=== PATIENT | female | born 1935 | race Caucasian/White ===

== ENCOUNTER → 2016-06-08 | Outpatient (CLI) | payer MEDICARE, OTHER ==
[~2016-06-08] MED LIST: ASPI1TAB69 PO; ASPI81 PO; DOXY100C PO; LEVA500T PO; LISI-363 PO; LISI-515 PO; MULT1TAB84 PO; VITA10002 PO
[2016-06-08 09:27] LABS: AUTOMATED NEUTROPHIL # 3.4 TH/MM3 (1.8-7.7); BASOPHIL % 0.7 % (0.0-2.0); EOSINOPHIL # 0.1 TH/MM3 (0-0.4); EOSINOPHIL % 1.8 % (0.0-4.0); HEMATOCRIT 38.7 % (35.0-46.0); HEMO FLAGS DIFF FINAL; LYMPH % 24.1 % (9.0-44.0); LYMPHOCYTE # 1.3 TH/MM3 (1.0-4.8); MEAN CELL VOLUME 87.4 FL (80.0-100.0); MEAN CORPUSCULAR HEMOGLOBIN 29.7 PG (27.0-34.0); MEAN CORPUSCULAR HGB CONC 33.9 % (32.0-36.0); MONO % 7.1 % (0.0-8.0); NEUT % 66.3 % (16.0-70.0); PLATELET COUNT 210 TH/MM3 (150-450); RED BLOOD COUNT 4.42 MIL/MM3 (4.00-5.30); RED CELL DISTRIBUTION WIDTH 13.3 % (11.6-17.2); WHITE BLOOD COUNT 5.2 TH/MM3 (4.0-11.0)
[2016-06-08 09:52] LABS: ALKALINE PHOSPHATASE 79 U/L (45-117); ALT (GPT) 31 U/L (10-53); ANION GAP 7 MEQ/L (5-15); AST (GOT) 25 U/L (15-37); BLOOD UREA NITROGEN 16 MG/DL (7-18); CHLORIDE 102 MEQ/L (98-107); GLOMERULAR FILTRATION RATE 61 ML/MIN (>89); GLUCOSE,FASTING 107 MG/DL (74-99); POTASSIUM 4.3 MEQ/L (3.5-5.1); SODIUM (NA) 141 MEQ/L (136-145); TOTAL BILIRUBIN ADULT 0.5 MG/DL (0.2-1.0)
== END ==
LOC: PLAB 07:19
PROVIDERS: ATTEND Family Medicine
DX: I10 Essential (primary) hypertension (principal); E11.9 Type 2 diabetes mellitus without complications
CPT/HCPCS: 36415; 80053; 85025

== ENCOUNTER → 2016-12-07 | Outpatient (CLI) | payer MEDICARE, OTHER ==
[~2016-12-07] MED LIST changes: -ASPI81 PO; -DOXY100C PO; -LEVA500T PO; -LISI-363 PO
[2016-12-07 09:27] LABS: AUTOMATED NEUTROPHIL # 2.6 TH/MM3 (1.8-7.7); BASOPHIL % 0.7 % (0.0-2.0); EOSINOPHIL # 0.1 TH/MM3 (0-0.4); EOSINOPHIL % 2.3 % (0.0-4.0); HEMO FLAGS DIFF FINAL; LYMPH % 30.6 % (9.0-44.0); LYMPHOCYTE # 1.4 TH/MM3 (1.0-4.8); MEAN CELL VOLUME 90.4 FL (80.0-100.0); MEAN CORPUSCULAR HEMOGLOBIN 30.3 PG (27.0-34.0); MEAN CORPUSCULAR HGB CONC 33.5 % (32.0-36.0); MONO % 8.4 % (0.0-8.0); PLATELET COUNT 190 TH/MM3 (150-450); RED BLOOD COUNT 4.21 MIL/MM3 (4.00-5.30); RED CELL DISTRIBUTION WIDTH 13.4 % (11.6-17.2); WHITE BLOOD COUNT 4.5 TH/MM3 (4.0-11.0)
[2016-12-07 09:57] LABS: ANION GAP 7 MEQ/L (5-15); AST (GOT) 17 U/L (15-37); BICARBONATE 29.3 MEQ/L (21.0-32.0); BLOOD UREA NITROGEN 21 MG/DL (7-18); CHLORIDE 102 MEQ/L (98-107); GLOMERULAR FILTRATION RATE 77 ML/MIN (>89); GLUCOSE,FASTING 107 MG/DL (74-99); POTASSIUM 3.9 MEQ/L (3.5-5.1); SODIUM (NA) 138 MEQ/L (136-145)
[2016-12-07 10:03] LABS: ALKALINE PHOSPHATASE 66 U/L (45-117); ALT (GPT) 26 U/L (10-53); HDL CHOLESTEROL 82.4 MG/DL (40.0-60.0); LDL CHOLESTEROL 113 MG/DL (0-99); TOTAL BILIRUBIN ADULT 0.5 MG/DL (0.2-1.0)
[2016-12-07 12:04] LABS: HEMOGLOBIN A1a 1.1 %; HEMOGLOBIN A1b 1.9 %; HEMOGLOBIN Ao 83.9 %; HEMOGLOBIN LA1C 2.2 %; HEMOGLOBIN P3 4.2 %
== END ==
LOC: PLAB 07:19
PROVIDERS: ATTEND Family Medicine
DX: G99.0 Autonomic neuropathy in diseases classified elsewhere (principal); E11.9 Type 2 diabetes mellitus without complications; I10 Essential (primary) hypertension
CPT/HCPCS: 36415; 80053; 80061; 83036; 85025

== ENCOUNTER → 2016-12-09 | Outpatient (CLI) | payer MEDICARE, OTHER ==
[2016-12-09 17:11] LABS: BLOOD, URINE TRACE (NEG); GLUCOSE,URINE NEG (NEG); KETONE, URINE TRACE mg/dL (NEG); MUCUS URINE FEW /lpf (OCC); NITRITE,URINE NEG (NEG); PH, URINE 5.5 (5.0-8.5); SQUAMOUS EPITHELIAL CELL URINE <1 /hpf (0-5); URINE COLOR YELLOW (YELLW/STRAW)
== END ==
LOC: PLAB 15:34
PROVIDERS: ATTEND Family Medicine
DX: R31.29 Other microscopic hematuria (principal)
CPT/HCPCS: 81001

== ENCOUNTER → 2017-07-11 | Outpatient (CLI) | payer MEDICARE, OTHER ==
[~2017-07-11] MED LIST changes: +ASPI-183 PO; +GABA100C4 PO; +HYDR-3516 PO; +MULTTAB67 PO; +VITA20003 PO; +WALKER WHEELS/F1 MIS
[2017-07-11 12:19] LABS: AUTOMATED NEUTROPHIL # 2.5 TH/MM3 (1.8-7.7); BASOPHIL % 0.6 % (0.0-2.0); EOSINOPHIL # 0.1 TH/MM3 (0-0.4); EOSINOPHIL % 1.9 % (0.0-4.0); HEMATOCRIT 39.6 % (35.0-46.0); HEMOGLOBIN 13.4 GM/DL (11.6-15.3); LYMPH % 35.5 % (9.0-44.0); LYMPHOCYTE # 1.6 TH/MM3 (1.0-4.8); MEAN CELL VOLUME 89.1 FL (80.0-100.0); MEAN CORPUSCULAR HGB CONC 33.7 % (32.0-36.0); MEAN PLATELET VOLUME 9.5 FL (7.0-11.0); MONO % 7.3 % (0.0-8.0); MONOCYTE # 0.3 TH/MM3 (0-0.9); NEUT % 54.7 % (16.0-70.0); PLATELET COUNT 179 TH/MM3 (150-450); RED BLOOD COUNT 4.45 MIL/MM3 (4.00-5.30); RED CELL DISTRIBUTION WIDTH 13.5 % (11.6-17.2); WHITE BLOOD COUNT 4.5 TH/MM3 (4.0-11.0)
[2017-07-11 12:27] LABS: BILIRUBIN, URINE NEG (NEG); BLOOD, URINE NEG (NEG); GLUCOSE,URINE NEG (NEG); KETONE, URINE NEG (NEG); MUCUS URINE FEW /lpf (OCC); NITRITE,URINE NEG (NEG); URINE COLOR LIGHT-YELLOW (YELLW/STRAW); URINE LEUKOCYTE ESTERASE NEG (NEG)
[2017-07-11 12:34] LABS: BICARBONATE 33.9 MEQ/L (21.0-32.0); CALCIUM 9.6 MG/DL (8.5-10.1); CREATININE 0.79 MG/DL (0.50-1.00)
--- NOTE | 2017-07-11 13:13 | RADRPT ---
EXAM DATE/TIME: 07/11/2017 12:54 [facility] COMPARISON: No previous studies available for comparison. INDICATIONS : Evaluate for pneumothorax, pneumonia or communicable disease. Pre-op for total right knee surgery. MEDICAL HISTORY : Carcinoma, breast. Hypertension SURGICAL HISTORY : Infusaport placed and removed. ENCOUNTER: Initial ACUITY: 1 day PAIN SCORE: 0/10 LOCATION: Bilateral chest FINDINGS: PA and lateral views of the chest demonstrate the lungs to be symmetrically aerated without evidence of mass, infiltrate or effusion. Mild compensated cardiomegaly. Mitral valve calcifications. Osseou s structures are intact. CONCLUSION: Mild compensated cardiomegaly Jan Rivera MD FACR on July 11, 2017 at 13:10 Board Certified Radiologist. This report was verified electronically.
--- NOTE | 2017-07-11 16:13 | EKG ---
Date Performed: 07/11/2017 Time Performed: 11:55:29 PTAGE: 82 years EKG: Sinus rhythm NORMAL ECG No significant change from prior electrocardiogram. DOCTOR: Warren Smith Interpretating Date/Time 07/11/2017 16:12:16
--- NOTE | 2017-07-12 18:46 | MH ---
cc: Pravin Srinivasan MD, Norman B MD DATE OF ADMISSION: 07/11/2017 ADMITTING DIAGNOSIS: Osteoarthritis of the right knee, valgus deformity right knee, pain right knee and gait disturbance. HISTORY OF PRESENT ILLNESS: The patient is an 82-year-old white female who has experienced a 5-year history of pain involving her right knee. She had noted the onset of her symptoms unrelated to injury or unusual activity and, at that time, had undergone orthopedic evaluation with the patient reporting that she was diagnosed as having an arthritic condition and apparently at that time was encouraged to consider joint replacement surgery. She declined such treatment and elected to continue with conservative management and later underwent further disposition in the [facility] where she has been followed for the past few years. Her treatment at that time included repeated cortisone injections as well as 1 course of viscosupplementation. With the passage of time, the patient became progressively more symptomatic with pain that began to interfere with all ambulatory activities. She presented to the undersigned physician in 04/2016, reporting ongoing pain about her right knee. Her x-ray studies were consistent with an arthritic involvement for which findings and treatment options were reviewed. The pros and cons of continuing with conservative management versus operative intervention that would involve total knee arthroplasty were outlined in detail. Emphasis was made regarding the fact that the decision to proceed with surgery would be left entirely to the patient's discretion. At that time, the patient was not quite ready to proceed with such treatment and thus she elected to proceed with additional conservative management, which included a repeat intraarticular steroid injection. The patient was followed on an outpatient basis thereafter. She returned to the office in 06/2017 reporting that she was having ongoing pain about her right knee and now was requiring use of a cane as a full-time ambulatory aid. She described obvious limitations with regards to all weightbearing activities relating that she has been taking gabapentin and utilizing a lidocaine patch as prescribed by her treating neurologist. She felt she was ready to consider a more definitive course of treatment for which the involvement of total knee arthroplasty was once again outlined. Her current x-ray studies revealed pronounced degenerative changes with near [id number] apposition about the lateral compartment, associated with a valgus deformity of at least 10 degrees magnitude, secondary involvement of the patellofemoral articulation. Findings were reviewed again with regards to the involvement of total knee arthroplasty for which the patient indicated her full understanding in this regard and expressed her desire to proceed accordingly. In compliance with her wishes, she was scheduled for admission at this time in order that the above be accomplished. PAST MEDICAL HISTORY, HOSPITALIZATIONS AND SURGERIES: Have included abdominal hysterectomy with appendectomy, bilateral carpal tunnel release, lumpectomy of the right breast for cancer followed by radiation and chemotherapy, tonsillectomy, cataract excision of the left eye, colonoscopy, external fixation of a right wrist fracture and excision of a skin cancer of her right lower extremity. MEDICAL ILLNESSES: Include hypertension for which the patient takes lisinopril 20 mg daily. She also takes gabapentin 200 mg at bedtime, vitamin D 2000 international units daily, vitamin B12 1000 mg daily and a one-a-day multiple vitamin. ALLERGIES: THE PATIENT DENIES ANY DRUG ALLERGIES. THE PATIENT DOES HAVE AN ALLERGY TO SURGICAL TAPE THAT HAS BEEN ASSOCIATED WITH BLISTER FORMATION. REVIEW OF SYSTEMS: She does wear glasses. Denies headaches, seizure or syncope. No sinus congestion or epistaxis. Diminished auditory acuity for which bilateral hearing aids are utilized. No tinnitus. No bleeding gums or dysphagia. Denies cough, shortness of breath, upper respiratory infection, pneumonia, or tuberculosis. No angina. She is medically managed for hypertension. Her appetite is good. Bowel movements are regular. No hepatitis, gallbladder disease or ulcers. There is a positive history of hemorrhoids. No urinary tract infection, no kidney stones. Fractures of the right foot and bilateral wrist fractures, the right side treated with external fixation. No psychiatric illness. The patient's medical history is also significant for a MRSA infection of her right lower leg that occurred in 11/2016 that was treated with at least 2 months of wound care management and at least 2 weeks of oral antibiotics. The patient describes an uneventful healing of that injury and was able to tolerate subsequent skin cancer excision of her right lower extremity without any evidence of recurrent infection following such treatment. Her remaining review of systems is unremarkable and noncontributory. FAMILY HISTORY: The patient has been for 13 years, this being a second marriage. Her is 86 years of age and described as being in good health. She has 2 daughters, both of whom are described as being in good health. Her family history is otherwise positive for diabetes, colon and ovarian cancer. SOCIAL HISTORY: The patient completed a high school education with college credits thereafter. 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 She denies active use of tobacco, ethanol consumption socially. PHYSICAL EXAMINATION: VITAL SIGNS: Height 5 feet 8 inches, weight 144 pounds. GENERAL: This is an alert, oriented, and responsive 82-year-old white female who sits quietly upon the examination table. No obvious distress. HEAD, EARS, EYES, NOSE, AND THROAT: Pupils are equally round and reactive to light. Extraocular movements full. Sclerae are clear. External nares clear. External auditory canals clear. Dental intact. Mucous membranes pink and moist. Pharynx clear. NECK: Supple. Active range of motion with no appreciable pain. Carotid pulse is palpable bilaterally. Trachea midline. Thyroid without thyroid enlargement. LUNGS: Clear to auscultation and percussion. No CVA tenderness. No discomfort about the dorsolumbar spine. HEART: Regular rhythm with a grade 3/6 systolic murmur heard best at the right second intercostal space. ABDOMEN: Soft, nontender. Bowel sounds are present. PELVIC: Per primary care physician. EXTREMITIES: Right knee - there is a mild fullness about the knee consistent with redundancy of soft tissue. No obvious intra-articular effusion. Slight lateral joint line tenderness without palpable deformity. Valgus orientation. Apprehension and compression sign negative. Limited mobility in the 110-degree range of flexion with subtle suggestion for crepitation. No ligamentous laxity. Carmelita test and drawer sign negative. Pivot shift and Jeanna sign positive for lateral compartment pain. Straight leg raising unremarkable at 80 degrees. Satisfactory mobility of the right hip with no associated pain. Mild antalgic gait. NEUROLOGIC: Cranial nerves 2-12 grossly intact. IMPRESSION: Osteoarthritis, right knee; valgus deformity, right knee; pain, right knee and gait disturbance. PLAN: Right total knee arthroplasty: The nature of the planned surgical procedure, the potential complications and risks associated, the expectations of surgery and the consent form were thoroughly reviewed with the patient in the presence of her prior to admission to the hospital. Cat has indicated her full understanding regarding all of the above and given consent to proceed with treatment as outlined. Medical evaluation and clearance for surgery completed by her primary care physician, Dr. Tran Post. MD MAIN [facility]/rh , 05:47 PM , 06:25 PM
== END ==
LOC: CPRE 11:06
PROVIDERS: ATTEND Orthopaedic Surgery
DX: Z01.810 Encounter for preprocedural cardiovascular examination (principal); Z01.811 Encounter for preprocedural respiratory examination; Z01.812 Encounter for preprocedural laboratory examination; M79.609 Pain in unspecified limb
CPT/HCPCS: 36415; 71046; 80048; 81001; 85025; 85610; 87640; 87641; 93005

== ENCOUNTER 2017-07-20 08:01 | Inpatient (IN) | payer MEDICARE, OTHER ==
[~2017-07-20] VITALS: Ht 172.7 cm; Wt 65.4 kg
[~2017-07-20 08:01] MED LIST changes: -ASPI-183 PO; -ASPI1TAB69 PO; -HYDR-3516 PO; -MULT1TAB84 PO; -WALKER WHEELS/F1 MIS
[2017-07-20] MEDS ORDERED: ceFAZolin 2 GM PREMIX 50 ML ONE (08:13)
[2017-07-20] MEDS ORDERED: ceFAZolin INJ 1,000 MG VIAL ONE (08:14)
[2017-07-20] MEDS ORDERED: VANCOMYCIN HCL 1000 MG VIAL ONE (08:14)
[2017-07-20] MEDS ORDERED: LACTATED RINGER'S 1000 ML IV PRN (08:45)
[2017-07-20] MEDS ORDERED: POVIDONE IODINE 5% (ANTISEPSIS KIT) 4 APPLICATIONS EACH NARE PRN (08:45)
[2017-07-20] MEDS ORDERED: SODIUM CHLORID 0.9% 500 ML IV PRN (08:45)
[2017-07-20] MEDS ORDERED: CHLORHEXIDINE GLUCONATE 2 % 1 PACK (2 CLOTHS) TOPICAL PRN (08:45)
[2017-07-20] MEDS ORDERED: INSULIN HUMAN REGULAR 1,000 UNITS/10 ML VIAL SQ PRN (08:45)
[2017-07-20] MEDS ORDERED: VANCOMYCIN 1 GM/200 ML PREMIX IV SCH (08:45)
[2017-07-20] MEDS ORDERED: POVIDONE IODINE 7.5% SCRUB 118 ML BOTTLE TOPICAL SCH (08:45)
[2017-07-20] MEDS ORDERED: ceFAZolin 2 GM PREMIX 50 ML IV SCH (08:45)
[2017-07-20] MEDS ORDERED: METOPROLOL TARTRATE 25 MG TAB PO PRN (08:45)
[2017-07-20] MEDS ORDERED: TRANEXAMIC ACID 1 GM PRIOR TO PROCEDURE IV SCH ×2 (08:45)
[2017-07-20 09:01] VITALS: PULSE 81
[2017-07-20] MEDS ORDERED: BUPIVACAINE LIPOSOME PF 1.3% 20 ML VIAL ONE (09:32)
[2017-07-20] MEDS ORDERED: MIDAZOLAM HCL 2 MG/2 ML VIAL ONE (09:32)
[2017-07-20] MEDS ORDERED: ACETAMINOPHEN 1000 MG/100 ML 100 ML IV ONE (09:45)
[2017-07-20] MEDS ORDERED: ARTIFICIAL TEARS OPTH OINT 3.5 APPLIC/3.5 GM TUBO ONE (10:28)
[2017-07-20] MEDS ORDERED: ROCURONIUM INJ 50 MG/5 ML SYRINGE IV PUSH ONE (12:00)
[2017-07-20] MEDS ORDERED: LIDOCAINE HCL 1% PF 5 ML SYRINGE OTHER ONE (12:00)
[2017-07-20] MEDS ORDERED: PROPOFOL 200 MG/20 ML AMP IV ONE (12:00)
[2017-07-20] MEDS ORDERED: ONDANSETRON HCL 4 MG/2 ML VIAL IV ONE (12:00)
[2017-07-20] MEDS ORDERED: DEXAMETHASONE SOD PHOS 4 MG/ML VIAL IV ONE (12:00)
[2017-07-20] MEDS ORDERED: ePHEDrine/NS 25 MG/5 ML SYRINGE IV ONE (12:00)
[2017-07-20] MEDS ORDERED: PHENYLEPH/NS 1000 MCG/10 ML SYR IV ONE (12:00)
[2017-07-20] MEDS ORDERED: LACTATED RINGER'S 1000 ML INJ 2,000 ML IV ONE (12:00)
--- NOTE | 2017-07-20 12:26 | HHI.FF ---
Face to Face Verification Diagnosis: (1) DJD (degenerative joint disease) of knee Physical Therapy Gait training Knee: Total knee, Protocol: Right, Full weight bearing Right LE Weight Bearing: WB as tolerated Right LE Range of Motion: Active ROM Nursing Dressing Changes: Daily dressing change I have seen patient Cat M Delaney on 07/20/17. My clinical findings support the need for the requested home health care services because: Limited ability to care for self High risk of falls I certify that my clinical findings support that this patient is homebound because: Post-op weakness Unsteady gait/balance Unsafe to leave home unassisted Pravin Srinivasan MD Jul 20, 2017 12:26
[2017-07-20] MEDS ORDERED: MORPHINE SULFATE 4 MG/ML INJ ONE (12:28)
[2017-07-20] MEDS ORDERED: ACETAMINOPHEN/HYDROcodone 325 MG/5 MG TAB PO PRN (12:30)
[2017-07-20] MEDS ORDERED: diphenhydrAMINE HCL 25 MG CAP PO PRN (12:30)
[2017-07-20] MEDS ORDERED: TRANEXAMIC ACID INJ 1,000 MG in SODIUM CHLORIDE 0.9% INJ 100 ML IV SCH (12:30)
[2017-07-20] MEDS ORDERED: ZOLPIDEM TARTRATE 5 MG TAB PO PRN (12:30)
[2017-07-20] MEDS ORDERED: NALOXONE HCL 0.4 MG/ML AMP IV PUSH PRN (12:30)
[2017-07-20] MEDS ORDERED: Post-op Orders (for Pharmacy) XX ONE (12:30)
[2017-07-20] MEDS: DEXT 5%-NACL 0.45% 1000 ML INJ 1,000 ML IV SCH ×2 (12:37→21:40)
[2017-07-20] MEDS: MORPHINE SULFATE 30 MG/30 ML PCA IV SCH (12:37)
[2017-07-20] MEDS ORDERED: *morphine SULFATE 4 MG/ML PERIprocedure ONLY ONE ×2 (12:40→12:53)
--- NOTE | 2017-07-20 12:55 | MP ---
cc: Pravin Srinivasan MD DATE OF OPERATION: 07/20/2017 PREOPERATIVE DIAGNOSIS: Osteoarthritis of the right knee, valgus deformity right knee, pain right knee and gait disturbance. POSTOPERATIVE DIAGNOSIS: Osteoarthritis of the right knee, valgus deformity right knee, pain right knee and gait disturbance. PROCEDURE PERFORMED: Right total knee arthroplasty. SURGEON: Pravin Srinivasan MD ANESTHESIA: General endotracheal. INDICATIONS: This is an 82-year-old white female with a 5 year history of right knee pain of gradual onset unrelated to injury or unusual activity. The patient had undergone prior orthopedic evaluation, reporting that she was diagnosed as having an arthritic condition and was encouraged to consider joint replacement surgery at that time. She declined such treatment and elected to continue with conservative management and later underwent further disposition in the [facility] where she was followed for the past few years. Her treatment included repeated cortisone injections and at least 1 course of viscosupplementation. With the passage of time, the patient became progressively more symptomatic with pain that began to interfere with all ambulatory activities. She presented to the undersigned physician in April of this past year and at that time reported ongoing pain about her right knee. Her x-ray studies were consistent with arthritic involvement for which findings and treatment options were reviewed. The pros and cons of continuing with conservative management versus operative intervention that would involve total knee arthroplasty were outlined in detail. Emphasis was made regarding the fact that the decision to proceed with surgery would be left entirely to the patient's discretion. At that time, the patient was not quite ready to commit to such an undertaking and elected to continue with conservative management which included repeat intraarticular steroid injection. She was followed on an outpatient basis and she returned to the office in June of this year reporting ongoing pain about her right knee that was now requiring use of a cane as a full-time ambulatory aid. She described obvious limitations regarding all weightbearing activities and begin taking gabapentin as well as a lidocaine patch as prescribed by her treating neurologist. She felt she was ready to consider a more definitive course of treatment. Her current x-ray studies revealed pronounced degenerative changes with near [id number] apposition about the lateral compartment associated with a valgus deformity of at least 10 degrees magnitude and secondary involvement of the patellofemoral articulation. Once again, the involvement of total knee arthroplasty was outlined for which the patient indicated her full understanding and expressed her desire to proceed accordingly. In compliance with her wishes, she was scheduled for admission at this time in order that the above be accomplished. FORMAT: Following induction of satisfactory general anesthesia by endotracheal intubation as completed per the Department of Anesthesia, a tourniquet was established around the proximal portion of the right lower extremity. The extremity proper was isolated with a U-drape, thereafter being prepped with Betadine solution and draped into a sterile field in the routine manner. Prior to initiation of the actual procedure, the standard time-out protocol was completed. All parameters were appropriately addressed and confirmed by operating room personnel. The extremity was elevated for approximately 1 minute and the tourniquet, thus inflated to 250 mmHg pressure. A sharp skin incision was initiated midline over the anterior aspect of the knee and developed through underlying subcutaneous tissue with hemostasis maintained by electrocautery. By deepening dissection, the anterior capsule was exposed. The medial capsulotomy completed and the patella subluxed in a lateral orientation. Examination of the joint space revealed tricompartmental degenerative changes being most pronounced about the lateral compartment. The articular surface of the patella was resected with power saw. The 3-hole guide was utilized for establishing post-holes. Medial and lateral meniscus structures, as well as the anterior cruciate ligament, were sharply excised. A centering hole was placed in the distal aspect of the femur allowing positioning of the intramedullary guide. The distal femoral cutting jig was attached and the distal femur resected. AP measurement noted 62.5 mm sizing to be appropriate. The matching cutting block was positioned. Anterior, posterior and chamfer cuts were completed. The tibial plateau was thereafter subluxed in an anterior orientation allowing positioning of the extramedullary guide. The tibial plateau was resected and measured with 75 mm sizing determined to be satisfactory. A trial reduction followed utilizing a 62.5 mm anatomic femoral component, a 75 mm tibial base with 10 mm bearing insert. The knee was readily brought to full extension. There was no laxity to varus and valgus stress at both 0 and 90 degrees flexed posture. Orientation was confirmed as being appropriate measurement of the pelvic guide through the mechanical access of the knee. Trial reduction followed utilizing a 34 mm standard patellar button. Once again, good tracking noted with no tendency towards subluxation. All trial components being removed, the remaining portion of the proximal tibia was prepared for insertion of the permanent component. The joint space was thoroughly lavage pulsed with antibiotic solution and hemostasis being maintained by electrocautery. An autogenous bone plug was inserted into the distal femoral guide hole and Thereafter a preparation of Palacos bone cement was utilized in inserting knee components in a sequential fashion which included a 75 mm fixed cruciate tibial plate, to which a 10 mm Vanguard tibial bearing insert was secured with locking green. The 62.5 mm Vanguard femoral component was firmly seated onto the distal femur, excess cement being removed, the knee was brought to full extension and thereafter, the 34 mm standard 3 post-patellar button was attached and maintained in place with patellar clamp while cement hardening was completed. Final range of motion assessment noted good tracking and stability throughout the knee. Irrigation was repeated with hemostasis maintained. Autovac drain tubes were inserted through superior stab wounds. The capsule was repaired with 0 Vicryl suture. The remaining portion of the wound was closed in layers in the routine manner, skin margins being reapproximated with a running subcuticular 3-0 Vicryl suture over which Steri-Strips were applied. Xeroform gauze and a bulky dry sterile dressing placed. Tourniquet deflated after 40 minutes of tourniquet time. The extremity being supported in a canvas knee splint, anesthesia was discontinued and she was thereafter transferred to a hospital stretcher and returned to the recovery room in satisfactory condition having tolerated her operative procedure well. ESTIMATED BLOOD LOSS: Approximately 50 mL as determined per anesthesia. All implants were of the [employer] juke box servicer. MD MAIN [facility]ILIYA , 12:18 PM , 12:53 PM
--- NOTE | 2017-07-20 13:09 | RADRPT ---
EXAM DATE/TIME: 07/20/2017 13:40 [facility] COMPARISON: No previous studies available for comparison. INDICATIONS : Post-op right total knee arthroplasty. MEDICAL HISTORY : Carcinoma, breast. Hypertension. SURGICAL HISTORY : Infusaport placed and removed. ENCOUNTER: Initial ACUITY: 1 day PAIN SCORE: Non-responsive. LOCATION: Right knee FINDINGS: AP and lateral views of the knee following arthroplasty reveals a prosthesis in anatomic alignment. F racture is not appreciated. Surgical drain is evident. CONCLUSION: Status post total knee arthroplasty. Jan Rivera MD FACR. Jan Rivera MD FACR on July 20, 2017 at 13:07 Board Certified Radiologist. This report was verified electronically.
[2017-07-20] MEDS: TRANEXAMIC ACID 1 GM POST-OP IV SCH ×4 (13:26→14:01)
[2017-07-20] MEDS: PCA - TOTAL MG MORPHINE DELIVERED PER SHIFT SCH ×2 (14:00→21:39)
[2017-07-20] MEDS ORDERED: DO NOT ADM ANY ANTICOAGULANT DRUGS PRN (15:00)
[2017-07-20] MEDS ORDERED: *ONDANSETRON 4 MG VIAL PERIprocedural Use ONLY ONE (15:21)
--- NOTE | 2017-07-20 15:45 | HHI.PR ---
Addendum to Inpatient Note Additional Information pt seen in PACU full note to follow Ashley Rojas MD Jul 20, 2017 15:45
--- NOTE | 2017-07-20 17:56 | PD.CONS ---
HPI Service [facility] Hospitalists Consult Requested By Dr. brody Reason for Consult Medical management Primary Care Physician Tran Post MD Diagnoses: (1) Status post total knee replacement, right (2) Hypertension History of Present Illness 82-year-old female admitted to the hospital for elective total right knee replacement. Patient has a history of osteoarthritis, hypertension. Apparently she failed conservative treatment for osteoarthritis, she has been losing more function and was admitted for total knee replacement. She is seen in the PACU. Medical history reviewed. She reports she is currently comfortable. Hypertension has been fairly controlled on lisinopril. No episodes of chest pain or dyspnea on exertion. Review of Systems Constitutional: DENIES: Fever, Chills Musculoskeletal: COMPLAINS OF: Joint pain Except as stated in HPI: all other systems reviewed are Neg Past Family Social History Allergies: Coded Allergies: adhesive (Verified Allergy, Intermediate, BLISTERS, 07/20/17) *MDRO Multi-Drug Resistant Organism (Verified Adverse Reaction, Unknown, ) MRSA (leg)-06/08/16 Past Medical History Hypertension Osteoarthritis History of MRSA skin infection involving the right leg. Successfully treated with antibiotics. Breast cancer status post lumpectomy, radiation, and chemotherapy. Past Surgical History Hysterectomy Right knee replacement Family History Reviewed and found to be noncontributory. Social History Does not use tobacco. Admits to occasional alcohol. Physical Exam Vital Signs Vital Signs Date Time Temp Pulse Resp B/P (MAP) Pulse Ox O2 Delivery O2 Flow Rate FiO2 07/20/17 16:38 97.5 85 18 121/58 (79) 100 Nasal Cannula 2 07/20/17 16:00 82 16 113/54 (73) 98 Nasal Cannula 2 07/20/17 15:30 95 18 124/56 (78) 95 Nasal Cannula 2 07/20/17 15:00 85 12 131/63 (85) 100 Nasal Cannula 2 07/20/17 14:00 75 12 147/69 (95) 100 Nasal Cannula 2 07/20/17 13:30 85 14 149/74 (99) 100 Nasal Cannula 2 07/20/17 13:15 87 16 146/70 (95) 100 Nasal Cannula 2 07/20/17 13:00 83 13 156/70 (98) 100 Nasal Cannula 2 07/20/17 12:45 90 17 156/82 (106) 100 Nasal Cannula 2 07/20/17 12:37 16 07/20/17 12:30 85 16 148/70 (96) 100 Nasal Cannula 2 07/20/17 12:17 96.5 112 16 150/70 (96) 99 Nasal Cannula 2 07/20/17 09:06 97.3 82 20 145/73 (97) 97 07/20/17 09:01 81 07/20/17 09:01 98 Nasal Cannula 2 Physical Exam GENERAL: This is a well-nourished, well-developed patient, in no apparent distress. SKIN: No rashes, ecchymoses or lesions. Cool and dry. HEAD: Atraumatic. Normocephalic. No temporal or scalp tenderness. EYES: Pupils equal round and reactive. Extraocular motions intact. No scleral icterus. No injection or drainage. ENT: Nose without bleeding, purulent drainage or septal hematoma. Throat without erythema, tonsillar hypertrophy or exudate. Uvula midline. Airway patent. NECK: Trachea midline. No JVD or lymphadenopathy. Supple, nontender, no meningeal signs. CARDIOVASCULAR: Regular rate and rhythm without murmurs, gallops, or rubs. RESPIRATORY: Clear to auscultation. Breath sounds equal bilaterally. No wheezes , rales, or rhonchi. GASTROINTESTINAL: Abdomen soft, non-tender, nondistended. No hepato-splenomegaly , or palpable masses. No guarding. MUSCULOSKELETAL: Extremities without clubbing, cyanosis, or edema. No joint tenderness, effusion, or edema noted. No calf tenderness. Negative Homans sign bilaterally. NEUROLOGICAL: Awake and alert. Cranial nerves II through XII intact. Motor and sensory grossly within normal limits. Five out of 5 muscle strength in all muscle groups. Normal speech. Imaging Last Impressions Knee X-Ray 07/20/17 1222 Signed Impressions: Service Date/Time: Thursday, July 20, 2017 13:40 - CONCLUSION: Status post total knee arthroplasty. Jan Rivera MD Assessment and Plan Problem List: (1) Status post total knee replacement, right ICD Code: Z96.651 - Presence of right artificial knee joint Plan: Continue routine postop care per orthopedics Early PT Pain control History of LE MRSA skin infection. ID was consulted. (2) Hypertension ICD Code: I10 - Essential (primary) hypertension Plan: Continue lisinopril Monitor BP Rimpel,Ricardy MD Jul 20, 2017 17:56
[2017-07-20] MEDS: ONDANSETRON HCL 4 MG/2 ML VIAL IVP PRN (19:09)
[2017-07-20 20:00] VITALS: BP 108/57; PULSE 88; RESP 18; TEMP 97.2; O2SAT 98
[2017-07-20 20:29] VITALS: O2SAT 99
[2017-07-20] MEDS: VANCOMYCIN INJ 1,000 MG in SODIUM CHLOR 0.9% 250 ML INJ 250 ML IV SCH (21:38)
--- NOTE | 2017-07-20 22:35 | PD.ID.CON ---
History of Present Illness Service ID Consult Requested By Dr Srinivasan Reason for Consult MRSA colonisation h/o MRSA abx rec's for profilaxis Primary Care Physician Tran Post MD Diagnoses: History of Present Illness 82 yo F active, in good health presented for R total knee replacement for DJD h/o MRSA infx, ankle 1 yr ago started on vanco periop Review of Systems Except as stated in HPI: all other systems reviewed are Neg Past Family Social History Allergies: Coded Allergies: adhesive (Verified Allergy, Intermediate, BLISTERS, 07/20/17) *MDRO Multi-Drug Resistant Organism (Verified Adverse Reaction, Unknown, ) MRSA (leg)-06/08/16 Past Medical History Hypertension Osteoarthritis 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 Breast cancer status post lumpectomy, radiation, and chemotherapy. Past Surgical History histerectomy lumpectomy R breast tonsillectome Active Ordered Medications Medications where reviewed in EMR Antibiotics Include: vanco Family History non contributory Social History No Tobacco. No ETOH. No Illicit Drugs. Physical Exam Vital Signs Vital Signs Date Time Temp Pulse Resp B/P (MAP) Pulse Ox O2 Delivery O2 Flow Rate FiO2 07/20/17 21:39 18 07/20/17 20:29 99 21 07/20/17 20:00 97.2 88 18 108/57 (74) 98 07/20/17 16:38 97.5 85 18 121/58 (79) 100 Nasal Cannula 2 07/20/17 16:00 82 16 113/54 (73) 98 Nasal Cannula 2 07/20/17 15:30 95 18 124/56 (78) 95 Nasal Cannula 2 07/20/17 15:00 85 12 131/63 (85) 100 Nasal Cannula 2 07/20/17 14:00 75 12 147/69 (95) 100 Nasal Cannula 2 07/20/17 13:30 85 14 149/74 (99) 100 Nasal Cannula 2 07/20/17 13:15 87 16 146/70 (95) 100 Nasal Cannula 2 07/20/17 13:00 83 13 156/70 (98) 100 Nasal Cannula 2 07/20/17 12:45 90 17 156/82 (106) 100 Nasal Cannula 2 07/20/17 12:37 16 07/20/17 12:30 85 16 148/70 (96) 100 Nasal Cannula 2 07/20/17 12:17 96.5 112 16 150/70 (96) 99 Nasal Cannula 2 07/20/17 09:06 97.3 82 20 145/73 (97) 97 07/20/17 09:01 81 07/20/17 09:01 98 Nasal Cannula 2 Physical Exam GENERAL: This is a well-nourished, well-developed patient, in no apparent distress. SKIN: No rashes, ecchymoses or lesions. Cool and dry. HEAD: Atraumatic. Normocephalic. No temporal or scalp tenderness. EYES: Pupils equal round and reactive. Extraocular motions intact. No scleral icterus. No injection or drainage. ENT: Nose without bleeding, purulent drainage or septal hematoma. Throat without erythema, tonsillar hypertrophy or exudate. Uvula midline. Airway patent. NECK: Trachea midline. No JVD or lymphadenopathy. Supple, nontender, no meningeal signs. CARDIOVASCULAR: Regular rate and rhythm without murmurs, gallops, or rubs. RESPIRATORY: Clear to auscultation. Breath sounds equal bilaterally. No wheezes , rales, or rhonchi. GASTROINTESTINAL: Abdomen soft, non-tender, nondistended. No hepato-splenomegaly , or palpable masses. No guarding. MUSCULOSKELETAL: Extremities without clubbing, cyanosis, or edema. RLE post op dressing in place intact. NEUROLOGICAL: Awake and alert. Cranial nerves II through XII intact. Motor and sensory grossly within normal limits. Five out of 5 muscle strength in all muscle groups. Normal speech. Assessment and Plan Assessment and Plan Sp TKA R knee Day #0 H/h MRSA complete Ashley Bruce MD Jul 20, 2017 22:35
[2017-07-21] VITALS: BP 98/57; PULSE 95; RESP 20; TEMP 97.7; O2SAT 97
[2017-07-21] MEDS: MORPHINE SULFATE 30 MG/30 ML PCA IV SCH (04:51)
[2017-07-21] MEDS: PCA - TOTAL MG MORPHINE DELIVERED PER SHIFT SCH ×3 (04:52→22:44)
[2017-07-21 05:00] VITALS: BP 114/44; PULSE 105; RESP 18; TEMP 97.7; O2SAT 93
[2017-07-21] MEDS: DEXT 5%-NACL 0.45% 1000 ML INJ 1,000 ML IV SCH ×3 (05:00→20:14)
[2017-07-21] MEDS ORDERED: HYDR-3516 PO (06:17)
[2017-07-21] MEDS ORDERED: ASPI-183 PO (06:17)
[2017-07-21] MEDS ORDERED: WALKER WHEELS/F1 MIS (06:19)
[2017-07-21 06:43] LABS: HEMATOCRIT 29.7 % (35.0-46.0); HEMOGLOBIN 9.5 GM/DL (11.6-15.3)
[2017-07-21] MEDS: VANCOMYCIN INJ 1,000 MG in SODIUM CHLOR 0.9% 250 ML INJ 250 ML IV SCH (07:42)
[2017-07-21] MEDS: DOCUSATE SODIUM 100 MG CAP PO PRN (07:42)
[2017-07-21 08:00] VITALS: BP 117/57; PULSE 107; RESP 18; TEMP 99; O2SAT 93
[2017-07-21] MEDS: LISINOPRIL 20 MG TAB PO SCH ×2 (09:00→11:23)
--- NOTE | 2017-07-21 09:51 | HHI.PR ---
Subjective Remarks Follow up Total knee, Patient states she is doing well, denies pain, awaiting to work with PT. Denies any chest pain or sob. Objective Vitals Vital Signs Date Time Temp Pulse Resp B/P (MAP) Pulse Ox O2 Delivery O2 Flow Rate FiO2 07/21/17 08:00 99.0 107 18 117/57 (77) 93 07/21/17 05:00 97.7 105 18 114/44 (67) 93 07/21/17 04:52 18 07/21/17 04:51 18 07/21/17 00:00 97.7 95 20 98/57 (71) 97 07/20/17 21:39 18 07/20/17 20:29 99 21 07/20/17 20:00 97.2 88 18 108/57 (74) 98 07/20/17 16:38 97.5 85 18 121/58 (79) 100 Nasal Cannula 2 07/20/17 16:00 82 16 113/54 (73) 98 Nasal Cannula 2 07/20/17 15:30 95 18 124/56 (78) 95 Nasal Cannula 2 07/20/17 15:00 85 12 131/63 (85) 100 Nasal Cannula 2 07/20/17 14:00 75 12 147/69 (95) 100 Nasal Cannula 2 07/20/17 13:30 85 14 149/74 (99) 100 Nasal Cannula 2 07/20/17 13:15 87 16 146/70 (95) 100 Nasal Cannula 2 07/20/17 13:00 83 13 156/70 (98) 100 Nasal Cannula 2 07/20/17 12:45 90 17 156/82 (106) 100 Nasal Cannula 2 07/20/17 12:37 16 07/20/17 12:30 85 16 148/70 (96) 100 Nasal Cannula 2 07/20/17 12:17 96.5 112 16 150/70 (96) 99 Nasal Cannula 2 I/O 07/20/17 07/20/17 07/20/17 07/21/17 07/21/17 07/21/17 07:00 15:00 23:00 07:00 15:00 23:00 Intake Total 1647 ml 75 ml Output Total 650 ml 110 ml 40 ml Balance 997 ml -35 ml -40 ml Intake Oral 75 ml IV Total 547 ml Other 1100 ml Output Urine Total 600 ml Drainage Total 110 ml 40 ml Estimated Blood Loss 50 ml # Voids 2 Result Diagram: 07/21/17 0510 Imaging Last Impressions Knee X-Ray 07/20/17 1222 Signed Impressions: Service Date/Time: Thursday, July 20, 2017 13:40 - CONCLUSION: Status post total knee arthroplasty. Jan Rivera MD Objective Remarks GENERAL: SKIN: Warm and dry. HEAD: Atraumatic. Normocephalic. EYES: Pupils equal and round. No scleral icterus. No injection or drainage. ENT: No nasal bleeding or discharge. Mucous membranes pink and moist. NECK: Trachea midline. No JVD. CARDIOVASCULAR: Regular rate and rhythm. RESPIRATORY: No accessory muscle use. Clear to auscultation. Breath sounds equal bilaterally. GASTROINTESTINAL: Abdomen soft, non-tender, nondistended. Hepatic and splenic margins not palpable. MUSCULOSKELETAL: Extremities without clubbing, cyanosis, or edema. No obvious deformities. NEUROLOGICAL: Awake and alert. No obvious cranial nerve deficits. Motor grossly within normal limits. CPM machine in place. Normal speech. PSYCHIATRIC: Appropriate mood and affect; insight and judgment normal. Medications and IVs Current Medications Medications (Trade) Dose Ordered Sig/Art Route Start Time Stop Time Status Last Admin (Betadine 7.5% Scrub) 1 applic ONCE TOPICAL 07/20/17 08:45 07/23/17 08:44 07/20/17 08:40 Cefazolin Sodium/ Dextrose 50 ml @ 100 mls/hr [employer]ULING IV 07/20/17 08:45 07/23/17 08:44 07/20/17 10:26 Vancomycin/Sodium Chloride 200 ml @ 200 mls/hr [employer] IV 07/20/17 08:45 07/23/17 08:44 (Lopressor) 25 mg [employer] PRN PO 07/20/17 08:45 07/23/17 08:44 (Betadine 5% Antisepsis Kit) 1 applic [employer] PRN EACH NARE 07/20/17 08:45 07/23/17 08:44 07/20/17 08:40 (Chlorhexidine 2% Cloth) 3 pack [employer] PRN TOPICAL 07/20/17 08:45 07/23/17 08:44 07/20/17 08:20 (NovoLIN R INJ) See Protocol Table ... [employer]ING PRN SQ 07/20/17 08:45 07/23/17 08:44 (Xarelto) 10 mg Q24H PO 07/21/17 12:00 07/21/17 11:23 ([facility] [place] [facility] Information) ONCE ONCE XX 07/22/17 14:00 07/22/17 14:01 ([place] 5-325 Mg) 1 tab Q4H PRN PO 07/20/17 12:30 07/21/17 11:23 ([place] 5-325 Mg) 2 tab Q4H PRN PO 07/20/17 12:30 (Tylenol) 650 mg Q6H PRN PO 07/20/17 12:30 (Zofran Inj) 4 mg Q6H PRN IVP 07/20/17 12:30 07/21/17 11:23 (Colace) 100 mg BID PRN PO 07/20/17 12:30 07/21/17 07:42 (Ambien) 5 mg HS PRN PO 07/20/17 12:30 (Narcan Inj) 0.4 mg UNSCH PRN IV PUSH 07/20/17 12:30 (Benadryl) 25 mg Q6H PRN PO 07/20/17 12:30 (Morphine 1 Mg/ ml SNOW REMOVING SUPERVISOR) 30 mg UNSCH IV 07/20/17 13:30 07/22/17 13:59 07/21/17 04:51 SNOW REMOVING SUPERVISOR Dosage Infused (Pha) 1 Q8HR .XX 07/20/17 14:00 07/22/17 14:01 07/21/17 11:21 Dextrose/Sodium Chloride 1,000 ml @ 125 mls/hr Q8H IV 07/20/17 13:00 07/21/17 07:46 Miscellaneous Information ALL NURSING DEPARTME... UNSCH PRN .XX 07/20/17 15:00 07/21/17 14:59 (Neurontin) 200 mg HS PO 07/21/17 21:00 (Prinivil) 20 mg DAILY PO 07/21/17 09:00 Urinary Catheter: No Vascular Central Line Catheter: No A/P Problem List: (1) Status post total knee replacement, right ICD Code: Z96.651 - Presence of right artificial knee joint (2) Hypertension ICD Code: I10 - Essential (primary) hypertension Assessment and Plan Total knee replacement -Cont postop care per ortho -Cont PT -Pain control with -ID for history of LE MRSA Hypertension, chronic, controlled -Cont. Lisinopril, monitor vitals DVT prophylaxis: Xarelto Discharge Planning Ortho to discharge patient possibly Tuesday to SNF. Alondra Hebert Jul 21, 2017 09:51
[2017-07-21 10:39] LABS: BICARBONATE 27.7 MEQ/L (21.0-32.0); CALCIUM 8.3 MG/DL (8.5-10.1); CREATININE 0.67 MG/DL (0.50-1.00)
[2017-07-21 10:41] LABS: BASOPHIL % 0.1 % (0.0-2.0); EOSINOPHIL % 0.1 % (0.0-4.0); HEMOGLOBIN 11.8 GM/DL (11.6-15.3); LYMPH % 8.1 % (9.0-44.0); LYMPHOCYTE # 0.8 TH/MM3 (1.0-4.8); MEAN CORPUSCULAR HGB CONC 33.7 % (32.0-36.0); MEAN PLATELET VOLUME 9.8 FL (7.0-11.0); MONO % 9.9 % (0.0-8.0); NEUT % 81.8 % (16.0-70.0); PLATELET COUNT 146 TH/MM3 (150-450); RED BLOOD COUNT 3.93 MIL/MM3 (4.00-5.30); RED CELL DISTRIBUTION WIDTH 13.3 % (11.6-17.2); WHITE BLOOD COUNT 9.8 TH/MM3 (4.0-11.0)
[2017-07-21] MEDS: RIVAROXABAN 10 MG TAB PO SCH (11:23)
[2017-07-21] MEDS: ONDANSETRON HCL 4 MG/2 ML VIAL IVP PRN (11:23)
[2017-07-21 11:24] VITALS: BP 104/52; PULSE 99; RESP 18; TEMP 99.5; O2SAT 94
[2017-07-21] MEDS: ACETAMINOPHEN/HYDROcodone 325 MG/5 MG TAB PO PRN (15:42)
[2017-07-21 15:43] VITALS: BP 107/64; PULSE 90; RESP 16; TEMP 98.8; O2SAT 94
[2017-07-21 20:05] VITALS: BP 144/62; PULSE 101; RESP 17; TEMP 99.1; O2SAT 93
[2017-07-21] MEDS: GABAPENTIN 100 MG CAP PO SCH (20:13)
[2017-07-22] VITALS: BP 148/77; PULSE 114; RESP 17; TEMP 99.6; O2SAT 93
[2017-07-22 04:00] VITALS: BP 157/77; PULSE 115; RESP 17; TEMP 100; O2SAT 92
[2017-07-22] MEDS: DEXT 5%-NACL 0.45% 1000 ML INJ 1,000 ML IV SCH ×3 (05:00→20:46)
[2017-07-22] MEDS: PCA - TOTAL MG MORPHINE DELIVERED PER SHIFT SCH ×2 (06:00→07:10)
--- NOTE | 2017-07-22 06:59 | MD ---
cc: Pravin Srinivasan MD, Sandra L MD DATE OF DISCHARGE: 07/23/2017 ADMITTING DIAGNOSES: Osteoarthritis of the right knee, valgus deformity right knee, pain right knee and gait disturbance. DISCHARGE DIAGNOSIS: Osteoarthritis of the right knee, valgus deformity right knee, pain right knee and gait disturbance. HISTORY: An 82-year-old white female with a 5 year history of right knee pain as related to osteoarthritis. She had conformed to conservative management in the past which included use of anti-inflammatory medication, intra-articular steroid injections, viscosupplementation and therapy intervention. With the passage of time, the patient became increasingly more symptomatic with pain that began to limit all ambulatory activities. Her more current x-ray studies had revealed obvious arthritic change about the right knee with valgus orientation. Findings and treatment options were reviewed with the patient at that time. The pros and cons of continuing with conservative management versus operative intervention were outlined with emphasis being made that the decision to proceed with surgery would be left entirely to the patient's discretion. Given the progressive nature of her pain and associated limitations, the patient was desirous of proceeding with surgery as discussed and in compliance with her wishes, she was scheduled for admission at this time in order that the above be accomplished. For additional information in this regard, interested parties will be directed to the documentation of her admission history and physical report. PHYSICAL EXAMINATION: Her physical examination at the time of admission revealed a mild fullness about the right knee consistent with redundancy of soft tissue. No obvious intra-articular effusion. Slight lateral joint line tenderness without palpable deformity valgus orientation. Apprehension and compression sign negative. Limited mobility in the 110 degree range of flexion with subtle suggestion for crepitation. No ligamentous laxity. Carmelita test and drawer sign negative. Pivot shift and Jeanna sign positive for lateral compartment pain. Straight leg raising unremarkable at 80 degrees. Satisfactory mobility of the right hip with no associated pain. Mild antalgic gait. HOSPITAL COURSE: Prior to admission to the hospital, the patient had undergone medical evaluation and clearance for surgery as completed by her primary care physician, Dr. Tran Post. She was taken to the operating room on 07/20/2017 and on that date underwent a right total knee arthroplasty completed in an uncomplicated manner. The patient was noted to have tolerated her operative procedure well. Her postoperative course, stable thereafter. Hemoglobin and hematocrit assessment postoperatively 11.8 and 35.0 respectively. The patient was progressively mobilized under the guidance of physical therapy being permitted weightbearing to tolerance about the right lower extremity. Followup examination of her surgical wound noted to be intact healing favorably with no evidence of infection. Medical followup per the hospitalist service. DVT prophylaxis initiated. Manager Bar consulted to assist with discharge planning. The patient had indicated her desire to be discharged to a rehab facility to continue her mobilization process. Plans were finalized in this regard and pending medical clearance, she was scheduled for transfer on the third postoperative day at which time, she was noted to be making steady progress with regards to her rehab program. She was scheduled to be seen in office followup in approximately 4 weeks. CONDITION ON DISCHARGE: Stable and the prognosis favorable. DISCHARGE MEDICATIONS: Included hydrocodone 5/325, #40; aspirin 325 mg 1 tab twice daily for 3 weeks, #30. Pravin Srinivasan MD NBS/DL , 06:26 AM , 06:58 AM
[2017-07-22 08:19] VITALS: BP 122/59; PULSE 105; RESP 16; TEMP 99.1; O2SAT 95
[2017-07-22] MEDS: ACETAMINOPHEN/HYDROcodone 325 MG/5 MG TAB PO PRN ×2 (08:26→13:06)
[2017-07-22] MEDS: LISINOPRIL 20 MG TAB PO SCH (08:26)
[2017-07-22] MEDS: DOCUSATE SODIUM 100 MG CAP PO PRN (08:26)
--- NOTE | 2017-07-22 10:00 | HHI.PR ---
Subjective Remarks Follow up Total knee. Patient doing well. Denies pain. CPM in place with no discomfort. Objective Vitals Vital Signs Date Time Temp Pulse Resp B/P (MAP) Pulse Ox O2 Delivery O2 Flow Rate FiO2 07/22/17 08:19 99.1 105 16 122/59 (80) 95 07/22/17 06:00 18 07/22/17 04:00 100.0 115 17 157/77 (103) 92 07/22/17 00:00 99.6 114 17 148/77 (100) 93 07/21/17 22:44 18 07/21/17 22:08 21 07/21/17 20:05 99.1 101 17 144/62 (89) 93 07/21/17 17:46 21 07/21/17 15:43 98.8 90 16 107/64 (78) 94 07/21/17 11:24 99.5 99 18 104/52 (69) 94 07/21/17 11:21 16 I/O 07/21/17 07/21/17 07/21/17 07/22/17 07/22/17 07/22/17 07:00 15:00 23:00 07:00 15:00 23:00 Intake Total 480 ml 360 ml Output Total 40 ml 60 ml 140 ml 0 ml Balance -40 ml -60 ml 340 ml 360 ml Intake Oral 480 ml 360 ml Stool Total 0 ml Drainage Total 40 ml 60 ml 140 ml # Voids 2 3 # Bowel Movements 0 Result Diagram: 07/21/17 0945 07/21/17 0945 Objective Remarks GENERAL: SKIN: Warm and dry. HEAD: Atraumatic. Normocephalic. EYES: Pupils equal and round. No scleral icterus. No injection or drainage. ENT: No nasal bleeding or discharge. Mucous membranes pink and moist. NECK: Trachea midline. No JVD. CARDIOVASCULAR: Regular rate and rhythm. RESPIRATORY: No accessory muscle use. Clear to auscultation. Breath sounds equal bilaterally. GASTROINTESTINAL: Abdomen soft, non-tender, nondistended. Hepatic and splenic margins not palpable. MUSCULOSKELETAL: Extremities without clubbing, cyanosis, or edema. No obvious deformities. NEUROLOGICAL: Awake and alert. No obvious cranial nerve deficits. Motor grossly within normal limits. CPM machine in place. Normal speech. PSYCHIATRIC: Appropriate mood and affect; insight and judgment normal. Medications and IVs Current Medications Medications (Trade) Dose Ordered Sig/Art Route Start Time Stop Time Status Last Admin (Betadine 7.5% Scrub) 1 applic ONCE TOPICAL 07/20/17 08:45 07/23/17 08:44 07/20/17 08:40 Cefazolin Sodium/ Dextrose 50 ml @ 100 mls/hr INDUSTRIAL ANALYST IV 07/20/17 08:45 07/23/17 08:44 07/20/17 10:26 Vancomycin/Sodium Chloride 200 ml @ 200 mls/hr INDUSTRIAL ANALYST IV 07/20/17 08:45 07/23/17 08:44 (Lopressor) 25 mg INDUSTRIAL ANALYST PRN PO 07/20/17 08:45 07/23/17 08:44 (Betadine 5% Antisepsis Kit) 1 applic INDUSTRIAL ANALYST PRN EACH NARE 07/20/17 08:45 07/23/17 08:44 07/20/17 08:40 (Chlorhexidine 2% Cloth) 3 pack INDUSTRIAL ANALYST PRN TOPICAL 07/20/17 08:45 07/23/17 08:44 07/20/17 08:20 (NovoLIN R INJ) See Protocol Table ... INDUSTRIAL ANALYST PRN SQ 07/20/17 08:45 07/23/17 08:44 (Xarelto) 10 mg Q24H PO 07/21/17 12:00 07/21/17 11:23 ([facility] Information) ONCE ONCE XX 07/22/17 14:00 07/22/17 14:01 ([place] 5-325 Mg) 1 tab Q4H PRN PO 07/20/17 12:30 07/21/17 11:23 ([place] 5-325 Mg) 2 tab Q4H PRN PO 07/20/17 12:30 07/22/17 08:26 (Tylenol) 650 mg Q6H PRN PO 07/20/17 12:30 (Zofran Inj) 4 mg Q6H PRN IVP 07/20/17 12:30 07/21/17 11:23 (Colace) 100 mg BID PRN PO 07/20/17 12:30 07/22/17 08:26 (Ambien) 5 mg HS PRN PO 07/20/17 12:30 (Narcan Inj) 0.4 mg UNSCH PRN IV PUSH 07/20/17 12:30 (Benadryl) 25 mg Q6H PRN PO 07/20/17 12:30 (Morphine 1 Mg/ ml MANAGER [employer]BERSHIP) 30 mg UNSCH IV 07/20/17 13:30 07/22/17 13:59 07/21/17 04:51 [employer]GER [employer]BER[employer]IP Dosage Infused (Pha) 1 Q8HR .XX 07/20/17 14:00 07/22/17 14:01 07/22/17 06:00 Dextrose/Sodium Chloride 1,000 ml @ 125 mls/hr Q8H IV 07/20/17 13:00 07/21/17 07:46 (Neurontin) 200 mg HS PO 07/21/17 21:00 07/21/17 20:13 (Prinivil) 20 mg DAILY PO 07/21/17 09:00 07/22/17 08:26 Urinary Catheter: No Vascular Central Line Catheter: No A/P Problem List: (1) Status post total knee replacement, right ICD Code: Z96.651 - Presence of right artificial knee joint (2) Hypertension ICD Code: I10 - Essential (primary) hypertension Assessment and Plan Total knee replacement -Cont postop care per ortho -Cont PT -Pain control with PO norco -ID for history of LE MRSA Hypertension, chronic, controlled -Cont. Lisinopril, monitor vitals DVT prophylaxis: Xarelto Discharge Planning Ortho to discharge patient possibly Tuesday to SNF. Alondra Hebert Jul 22, 2017 10:00
[2017-07-22 12:00] VITALS: BP 117/59; PULSE 92; RESP 17; TEMP 97.9; O2SAT 96
[2017-07-22] MEDS: RIVAROXABAN 10 MG TAB PO SCH (12:00)
[2017-07-22] MEDS ORDERED: MISCELLANEOUS PHARMACY INFORMATION XX ONE (14:00)
--- NOTE | 2017-07-22 14:42 | HHI.PR ---
Addendum to Inpatient Note Additional Information OK to dc pt No further abx tx needed Ashley Rojas MD Jul 22, 2017 14:42
[2017-07-22 16:42] VITALS: BP 135/59; PULSE 97; RESP 17; TEMP 98.9; O2SAT 94
[2017-07-22 20:05] VITALS: BP 157/84; PULSE 120; RESP 18; TEMP 101.1; O2SAT 97
[2017-07-22] MEDS: ACETAMINOPHEN 325 MG TAB PO PRN (20:45)
[2017-07-22] MEDS: GABAPENTIN 100 MG CAP PO SCH (20:45)
[2017-07-23] VITALS: BP 107/53; PULSE 107; RESP 17; TEMP 99; O2SAT 93
[2017-07-23] MEDS: DEXT 5%-NACL 0.45% 1000 ML INJ 1,000 ML IV SCH ×3 (05:00→21:00)
[2017-07-23 08:18] VITALS: BP 147/67; PULSE 112; RESP 18; TEMP 100.6; O2SAT 95
[2017-07-23] MEDS: DOCUSATE SODIUM 100 MG CAP PO PRN (10:44)
[2017-07-23] MEDS: LISINOPRIL 20 MG TAB PO SCH (10:45)
[2017-07-23] MEDS: ACETAMINOPHEN 325 MG TAB PO PRN (10:52)
--- NOTE | 2017-07-23 11:21 | HHI.PR ---
Subjective Remarks Pt feels well. pain controlled. no n/v. pt denies any cough, SOB, burning w urination but does note increase in urinary frequency. Discussed w RN, pt did have a fever of 101.1-->100.6 overnight, she is POD 3 Objective Vitals Vital Signs Date Time Temp Pulse Resp B/P (MAP) Pulse Ox O2 Delivery O2 Flow Rate FiO2 07/23/17 08:18 100.6 112 18 147/67 (93) 95 07/23/17 00:00 99.0 107 17 107/53 (71) 93 07/22/17 20:05 101.1 120 18 157/84 (108) 97 07/22/17 16:42 98.9 97 17 135/59 (84) 94 07/22/17 12:00 97.9 92 17 117/59 (78) 96 I/O 07/22/17 07/22/17 07/22/17 07/23/17 07/23/17 07/23/17 07:00 15:00 23:00 07:00 15:00 23:00 Intake Total 360 ml 500 ml 360 ml Output Total 0 ml 900 ml Balance 360 ml -400 ml 360 ml Intake Oral 360 ml 500 ml 360 ml Output Urine Total 900 ml Stool Total 0 ml # Voids 3 3 # Bowel Movements 0 0 Result Diagram: 07/21/17 0945 07/21/17 0945 Imaging Last Impressions Knee X-Ray 07/20/17 1222 Signed Impressions: Service Date/Time: Thursday, July 20, 2017 13:40 - CONCLUSION: Status post total knee arthroplasty. Jan Rivera MD Objective Remarks SKIN: Warm and dry. CARDIOVASCULAR: Regular rate and rhythm. RESPIRATORY: No accessory muscle use. Clear to auscultation. Breath sounds equal bilaterally. GASTROINTESTINAL: Abdomen soft, non-tender, nondistended. MUSCULOSKELETAL: Extremities without edema. dressing over knee d/c/i, i do not note any erythema around dressing. NEUROLOGICAL: Awake and alert. No obvious cranial nerve deficits. Motor grossly within normal limits. CPM machine in place. Normal speech. A/P Problem List: (1) Status post total knee replacement, right ICD Code: Z96.651 - Presence of right artificial knee joint (2) Hypertension ICD Code: I10 - Essential (primary) hypertension Assessment and Plan Total knee replacement POD 3 -Cont postop care per ortho -Cont PT -Pain control and DVT proph per ortho -ID following for history of LE MRSA Post op fever overnight: She is pod 3. Admits to increase urinary frequency, will check UA. I have notified ID ammonia print operator as well. Hypertension, chronic, controlled -Cont. Lisinopril, monitor vitals DVT prophylaxis: Xarelto Discharge Planning f/u u/a and final recs from ID prior to d/c Lesly Hinton MD Jul 23, 2017 11:21
--- NOTE | 2017-07-23 11:44 | HHI.IDPN ---
Subjective Subjective Remarks ID COVERAGE 82 yo F active, in good health presented for R total knee replacement for DJD h/o MRSA infx, ankle 1 yr ago started on vanco periop Notes reviewed Askesd to eval patient for fever -started last night Feels great Ambulating Doing CPM No resp complaint Voiding, but incontinent at times Constipated Antibiotics Current Medications Medications (Trade) Dose Ordered Sig/Art Route Start Time Stop Time Status Last Admin (Xarelto) 10 mg Q24H PO 07/21/17 12:00 07/22/17 12:00 ([place] 5-325 Mg) 1 tab Q4H PRN PO 07/20/17 12:30 07/21/17 11:23 ([place] 5-325 Mg) 2 tab Q4H PRN PO 07/20/17 12:30 07/22/17 13:06 (Tylenol) 650 mg Q6H PRN PO 07/20/17 12:30 07/23/17 10:52 (Zofran Inj) 4 mg Q6H PRN IVP 07/20/17 12:30 07/21/17 11:23 (Colace) 100 mg BID PRN PO 07/20/17 12:30 07/23/17 10:44 (Ambien) 5 mg HS PRN PO 07/20/17 12:30 (Narcan Inj) 0.4 mg UNSCH PRN IV PUSH 07/20/17 12:30 (Benadryl) 25 mg Q6H PRN PO 07/20/17 12:30 Dextrose/Sodium Chloride 1,000 ml @ 125 mls/hr Q8H IV 07/20/17 13:00 07/21/17 07:46 (Neurontin) 200 mg HS PO 07/21/17 21:00 07/22/17 20:45 (Prinivil) 20 mg DAILY PO 07/21/17 09:00 07/23/17 10:45 Lines Line with no evidence on infection Past Medical History Hypertension Osteoarthritis 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 Breast cancer status post lumpectomy, radiation, and chemotherapy. 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 Vital Signs Date Time Temp Pulse Resp B/P (MAP) Pulse Ox O2 Delivery O2 Flow Rate FiO2 07/23/17 08:18 100.6 112 18 147/67 (93) 95 07/23/17 00:00 99.0 107 17 107/53 (71) 93 07/22/17 20:05 101.1 120 18 157/84 (108) 97 07/22/17 16:42 98.9 97 17 135/59 (84) 94 07/22/17 12:00 97.9 92 17 117/59 (78) 96 Physical Exam GENERAL: Awake and alert NAD. SKIN: No rashes, ecchymoses or lesions. Cool and dry. HEAD: Atraumatic. Normocephalic. No temporal or scalp tenderness. EYES: Pupils equal round and reactive. Extraocular motions intact. No scleral icterus. No injection or drainage. ENT: Nose without bleeding, purulent drainage. Moist oal mucosa NECK: Trachea midline. No JVD or lymphadenopathy. Supple, nontender, no meningeal signs. CARDIOVASCULAR: Regular rate and rhythm , has murmur at base of the heart. RESPIRATORY: Clear to auscultation. Breath sounds equal bilaterally. No wheezes , rales, or rhonchi. GASTROINTESTINAL: Abdomen soft, non-tender, nondistended. No hepato-splenomegaly , or palpable masses. No guarding. MUSCULOSKELETAL: Extremities without clubbing, cyanosis, or edema. RLE post op dressing in place intact. Incision with no evid of infection NEUROLOGICAL: Awake and alert. Cranial nerves II through XII intact. Motor and sensory grossly within normal limits. Five out of 5 muscle strength in all muscle groups. Normal speech. Assessment & Plan Remarks IMPRESSION Postop feverm, not localizing - ?atelectasis S/P RTKA Hx MRSA infection RECOMMENDATION CXR Ua and C/S Follow results of work-up Monitor temps Monitor progress Will not start any Abx at this time since she clinically looks good Explained plan to the patientMarika Alcantar MD Jul 23, 2017 11:44
[2017-07-23 12:44] VITALS: BP 118/63; PULSE 101; RESP 17; TEMP 98; O2SAT 98
[2017-07-23 13:24] LABS: BILIRUBIN, URINE NEG (NEG); BLOOD, URINE TRACE (NEG); GLUCOSE,URINE NEG (NEG); KETONE, URINE NEG (NEG); NITRITE,URINE NEG (NEG); URINE COLOR LIGHT-YELLOW (YELLW/STRAW); URINE LEUKOCYTE ESTERASE NEG (NEG)
[2017-07-23] MEDS: RIVAROXABAN 10 MG TAB PO SCH (13:37)
[2017-07-23] MEDS ORDERED: BISACODYL 10 MG SUPP RECTAL PRN (14:30)
[2017-07-23 16:00] VITALS: BP 145/63; PULSE 104; RESP 18; TEMP 98.4; O2SAT 98
--- NOTE | 2017-07-23 16:42 | RADRPT ---
EXAM DATE/TIME: 07/23/2017 15:24 [place] COMPARISON: CHEST PA & LAT, July 11, 2017, 12:54. INDICATIONS : Shortness of breath and fever. MEDICAL HISTORY : Carcinoma, breast. Hypertension SURGICAL HISTORY : Lumpectomy. ENCOUNTER: Initial ACUITY: 1 day PAIN SCORE: 0/10 LOCATION: Bilateral chest FINDINGS: PA and lateral views of the chest demonstrate the lungs to be symmetrically aerated without evidence of mass, infiltrate or effusion. The cardiomediastinal contours are unremarkable. Osseous structure s are intact. CONCLUSION: No acute disease. Armen Anderson MD on July 23, 2017 at 16:39 Board Certified Radiologist. This report was verified electronically.
[2017-07-23] MEDS: MAGNESIUM HYDROXIDE SUSP 30 ML CUP PO PRN (17:28)
[2017-07-23 20:00] VITALS: BP 122/63; PULSE 97; RESP 18; TEMP 98; O2SAT 93
[2017-07-23] MEDS: GABAPENTIN 100 MG CAP PO SCH (21:03)
[2017-07-24] VITALS: BP 105/53; PULSE 94; RESP 16; TEMP 98.1; O2SAT 94
[2017-07-24] MEDS: DEXT 5%-NACL 0.45% 1000 ML INJ 1,000 ML IV SCH ×2 (05:00→12:06)
[2017-07-24 08:00] VITALS: BP 146/73; PULSE 80; RESP 18; TEMP 97.5; O2SAT 96
[2017-07-24] MEDS: MAGNESIUM HYDROXIDE SUSP 30 ML CUP PO PRN (09:06)
[2017-07-24] MEDS: LISINOPRIL 20 MG TAB PO SCH (09:06)
--- NOTE | 2017-07-24 09:58 | HHI.IDPN ---
Subjective Subjective Remarks ID COVERAGE 82 yo F active, in good health presented for R total knee replacement for DJD h/o MRSA infx, ankle 1 yr ago started on vanco periop Notes reviewed Has been afebrile >24 hours Feels great Ambulating UA ok CXR ok Not on any Abx No resp complaint Antibiotics Current Medications Medications (Trade) Dose Ordered Sig/Art Route Start Time Stop Time Status Last Admin (Xarelto) 10 mg Q24H PO 07/21/17 12:00 07/23/17 13:37 (Deaver 5-325 Mg) 1 tab Q4H PRN PO 07/20/17 12:30 07/21/17 11:23 (Deaver 5-325 Mg) 2 tab Q4H PRN PO 07/20/17 12:30 07/22/17 13:06 (Tylenol) 650 mg Q6H PRN PO 07/20/17 12:30 07/23/17 10:52 (Zofran Inj) 4 mg Q6H PRN IVP 07/20/17 12:30 07/21/17 11:23 (Colace) 100 mg BID PRN PO 07/20/17 12:30 07/23/17 10:44 (Ambien) 5 mg HS PRN PO 07/20/17 12:30 (Narcan Inj) 0.4 mg UNSCH PRN IV PUSH 07/20/17 12:30 (Benadryl) 25 mg Q6H PRN PO 07/20/17 12:30 Dextrose/Sodium Chloride 1,000 ml @ 125 mls/hr Q8H IV 07/20/17 13:00 07/21/17 07:46 (Neurontin) 200 mg HS PO 07/21/17 21:00 07/23/17 21:03 (Prinivil) 20 mg DAILY PO 07/21/17 09:00 07/24/17 09:06 (Milk Of Magnesia Liq) 30 ml DAILY PRN PO 07/23/17 14:30 07/24/17 09:06 (Dulcolax Supp) 10 mg ONCE PRN RECTAL 07/23/17 14:30 07/24/17 14:29 07/23/17 17:28 Lines Line with no evidence on infection Past Medical History Hypertension Osteoarthritis 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 Breast cancer status post lumpectomy, radiation, and chemotherapy. 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 Vital Signs Date Time Temp Pulse Resp B/P (MAP) Pulse Ox O2 Delivery O2 Flow Rate FiO2 07/24/17 08:00 97.5 80 18 146/73 (97) 96 07/24/17 00:00 98.1 94 16 105/53 (70) 94 07/23/17 20:00 98.0 97 18 122/63 (82) 93 07/23/17 16:00 98.4 104 18 145/63 (90) 98 07/23/17 12:44 98.0 101 17 118/63 (81) 98 Imaging Last 48 hours Impressions Chest X-Ray 07/23/17 0000 Signed Impressions: Service Date/Time: Sunday, July 23, 2017 15:24 - CONCLUSION: No acute disease. Armen Anderson MD Physical Exam GENERAL: Awake and alert NAD. SKIN: No rashes, ecchymoses or lesions. Cool and dry. HEAD: Atraumatic. Normocephalic. No temporal or scalp tenderness. EYES: Pupils equal round and reactive. Extraocular motions intact. No scleral icterus. No injection or drainage. ENT: Nose without bleeding, purulent drainage. Moist oal mucosa NECK: Trachea midline. No JVD or lymphadenopathy. Supple, nontender, no meningeal signs. CARDIOVASCULAR: Regular rate and rhythm , has murmur at base of the heart. RESPIRATORY: Clear to auscultation. Breath sounds equal bilaterally. No wheezes , rales, or rhonchi. GASTROINTESTINAL: Abdomen soft, non-tender, nondistended. No hepato-splenomegaly , or palpable masses. No guarding. MUSCULOSKELETAL: Extremities without clubbing, cyanosis, or edema. RLE post op dressing in place intact. Incision with no evid of infection NEUROLOGICAL:Non-focal PSYCH: Calm and cooperative LINE: NO evidence of infection Assessment & Plan Remarks IMPRESSION Postop fever, not localizing - ?atelectasis - temps normal now S/P RTKA Hx MRSA infection RECOMMENDATION Clinically looks good No evidence of infection found and temps have improved She is not on any Abx She is clinically stable from ID standpoint and can be D/C Explained plan to the patientI Marika Coleman MD Jul 24, 2017 09:58
[2017-07-24] MEDS: RIVAROXABAN 10 MG TAB PO SCH (12:06)
== END 2017-07-24 14:19 | DRG 470 ==
LOC: HSDI 08:01 → N06A 16:59
PROVIDERS: ADMIT Orthopaedic Surgery; ATTEND Orthopaedic Surgery
PROC: 0SRC0J9 Replacement of Right Knee Joint with Synthetic Substitute, Cemented, Open Approach (ICD-10-PCS; principal; 2017-07-20 10:07)
DX: M17.11 Unilateral primary osteoarthritis, right knee (principal); R50.82 Postprocedural fever; I10 Essential (primary) hypertension; M21.00 Valgus deformity, not elsewhere classified, unspecified site; Z85.3 Personal history of malignant neoplasm of breast; Z92.21 Personal history of antineoplastic chemotherapy; Z92.3 Personal history of irradiation; Z86.14 Personal history of Methicillin resistant Staphylococcus aureus infection; Z90.710 Acquired absence of both cervix and uterus; Z22.322 Carrier or suspected carrier of Methicillin resistant Staphylococcus aureus; R35.0 Frequency of micturition; K59.00 Constipation, unspecified
CPT/HCPCS: 71046; 73560; 80048; 81001; 85014; 85018; 85025; 86850; 86900; 86901; 88300; 88305; 94150; C1776; C9290; J0131; J0690; J1100; J2250; J2270; J2370; J2405; J3010; J3370; J7050; J7120; L1830